=== PATIENT | female | born 2005 | race Caucasian/White ===

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

== ENCOUNTER → 2024-03-08 | Outpatient (CLI) | payer MEDICAID, SELFPAY ==
[2024-03-08 17:35] LABS: Hemoglobin A1c 5.5 % (3.8-5.6)
[2024-03-08 17:40] LABS: Follicle Stimulating Hormone 6.4 mIU/mL; T4 Free Direct 0.97 ng/dL (0.76-1.46)
[2024-03-13 02:07] LABS: PROLACTIN 9.9 ng/mL (4.8-33.4); Testosterone Free 1.1 pg/mL (Not Estab.); Thyroid Peroxidase AB < 9 IU/mL (0-26)
== END | disposition home or self-care (01) ==
PROVIDERS: PCP Internal Medicine; Referring Provider Nurse Practitioner Women's Health; Visit Provider Nurse Practitioner Women's Health
DX: N93.9 Abnormal uterine and vaginal bleeding, unspecified (principal); R63.5 Abnormal weight gain; L70.9 Acne, unspecified
CPT/HCPCS: 36415; 82627; 83001; 83036; 84146; 84402; 84439; 84443; 86376; 82626